=== PATIENT | male | born 1965 | race African-American/Black ===

== ENCOUNTER → 2016-08-09 | Outpatient (CLI) | payer OTHER ==
[~2016-08-09] MED LIST: APIX5TAB PO; AZIT500T2 PO; CALC-131 PO; GABA800T PO; GLIP5TAB8 PO; METF500T PO; POTA75TA; POTA75TA2; PRAV20TA2 PO; PRED50 PO
[2016-08-09 14:42] LABS: AUTOMATED NEUTROPHIL # 3.5 TH/MM3 (1.8-7.7); BASOPHIL % 0.5 % (0.0-2.0); EOSINOPHIL # 0.3 TH/MM3 (0-0.4); EOSINOPHIL % 4.6 % (0.0-4.0); HEMATOCRIT 46.2 % (39.0-51.0); HEMO FLAGS DIFF FINAL; LYMPH % 28.5 % (9.0-44.0); LYMPHOCYTE # 1.8 TH/MM3 (1.0-4.8); MEAN CELL VOLUME 90.2 FL (80.0-100.0); MEAN CORPUSCULAR HEMOGLOBIN 30.7 PG (27.0-34.0); MEAN CORPUSCULAR HGB CONC 34.1 % (32.0-36.0); MONO % 10.2 % (0.0-8.0); NEUT % 56.2 % (16.0-70.0); PLATELET COUNT 142 TH/MM3 (150-450); RED BLOOD COUNT 5.13 MIL/MM3 (4.50-5.90); RED CELL DISTRIBUTION WIDTH 13.5 % (11.6-17.2); WHITE BLOOD COUNT 6.2 TH/MM3 (4.0-11.0)
[2016-08-09 14:48] LABS: ALT (GPT) 32 U/L (12-78); ANION GAP 6 MEQ/L (5-15); AST (GOT) 17 U/L (15-37); BLOOD UREA NITROGEN 9 MG/DL (7-18); CHLORIDE 107 MEQ/L (98-107); GLOMERULAR FILTRATION RATE 90 ML/MIN (>89); GLUCOSE,FASTING 179 MG/DL (74-99); POTASSIUM 3.8 MEQ/L (3.5-5.1); SODIUM (NA) 142 MEQ/L (136-145)
[2016-08-09 14:58] LABS: ALKALINE PHOSPHATASE 90 U/L (45-117); HDL CHOLESTEROL 54.7 MG/DL (40.0-60.0); LDL CHOLESTEROL 65 MG/DL (0-99); TOTAL BILIRUBIN ADULT 0.3 MG/DL (0.2-1.0)
[2016-08-09 16:39] LABS: HEMOGLOBIN A1a 1.3 %; HEMOGLOBIN A1b 1.3 %; HEMOGLOBIN Ao 77.5 %; HEMOGLOBIN F 1.6 %; HEMOGLOBIN LA1C 2.6 %; HEMOGLOBIN P3 4.4 %
== END ==
LOC: CLAB 14:07
PROVIDERS: ATTEND Family Medicine
DX: E11.9 Type 2 diabetes mellitus without complications (principal); I63.9 Cerebral infarction, unspecified; I10 Essential (primary) hypertension; I82.509 Chronic embolism and thrombosis of unspecified deep veins of unspecified lower extremity; D69.49 Other primary thrombocytopenia; Z79.01 Long term (current) use of anticoagulants
CPT/HCPCS: 36415; 80053; 80061; 83036; 84443; 85025